=== PATIENT | female | born 1960 | race Caucasian/White ===

== ENCOUNTER → 2024-06-15 13:38 | Outpatient (REF) | payer OTHER, SELFPAY | LOC: RAD 13:38 | PROVIDERS: ATTENDING PHYSICIAN Surgery Vascular Surgery; FAMILY PHYSICIAN Family Medicine | DX: I73.9 Peripheral vascular disease, unspecified (principal) | CPT/HCPCS: 75635; Q9967 ==

== ENCOUNTER 2024-07-07 09:05 | Inpatient (IN) | payer OTHER, SELFPAY ==
[2024-06-30 10:35] VITALS: BMI 20.8
[2024-06-30 10:59] LABS: % Basophils 0.6 % (0-2); % Eosinophils 1.2 % (0-6); % Immature Granulocytes 0.3 % (0-0.5); % Lymphocytes 24.5 % (20.5-51.1); % Monocytes 6.9 % (1.7-9.3); % Neutrophils 66.5 % (42.2-75.2); Absolute Basophils 0.1 10^3/uL (0-0.2); Absolute Eosinophils 0.1 10^3/uL (0-0.7); Absolute Lymphocytes 2.5 10^3/uL (1.2-3.4); Absolute Monocytes 0.7 10^3/uL (0.1-0.6); Absolute Neutrophils 6.8 10^3/uL (1.4-6.5); Hematocrit 43.2 % (37.0-47.0); Hemoglobin 14.4 g/dL (12.0-16.0); Mean Corp Hgb Conc. 33.3 g/dL (33.0-37.0); Mean Corpuscular Hgb 32.5 pg (27.0-31.0); Mean Corpuscular Volume 97.5 fL (81.0-99.0); Mean Platelet Volume 8.7 fL (7.4-10.4); Nucleated Red Blood Cells % 0 %; Platelet Count 264 10^3/uL (130-400); Red Blood Cell Count 4.43 10^6/uL (4.20-5.40); Red Cell Dist. Width 13.2 % (11.5-14.5); White Blood Cell Count 10.3 10^3/uL (4.8-10.8)
[2024-06-30 11:07] LABS: INR 0.87; PT 12.4 Sec (11.4-14.6)
[2024-06-30 11:36] LABS: Blood Urea Nitrogen 11 mg/dl (7-17); Calcium 9.6 mg/dl (8.4-10.2); Carbon Dioxide 29 mmol/L (22-30); Chloride 101 mmol/L (98-107); Estimated Creatinine Clearance 80 ml/min; Glucose 125 mg/dl (70-99); Potassium 4.4 mmol/L (3.5-5.1); Sodium 136 mmol/L (135-145); eGFR > 60.00
[2024-07-07] VITALS (28 sets, daily range): BP systolic 100–155; BP diastolic 50–100
--- NOTE | 2024-07-07 09:43 | W.SUR.PREOP ---
Pre-Operative Surgical Note
-
I have examined this patient prior to the performance of the scheduled procedure.
The patient's condition is unchanged from the time of the current History and
Physical and the patient is able to undergo the scheduled procedure.
[2024-07-07] MEDS: PERIDEX 0.12% ORAL RINSE 15 ML PO (09:48)
[2024-07-07] MEDS: BACTROBAN NASAL 1 GRAM NASAL (09:48)
[2024-07-07] MEDS: NSS 500 IV (09:49)
[2024-07-07] MEDS: NSS 1000 IV (13:00)
[2024-07-07 13:20] LABS: Hematocrit 40.9 % (37.0-47.0); Mean Corp Hgb Conc. 34.2 g/dL (33.0-37.0); Mean Corpuscular Hgb 33.3 pg (27.0-31.0); Mean Corpuscular Volume 97.1 fL (81.0-99.0); Mean Platelet Volume 8.8 fL (7.4-10.4); Platelet Count 220 10^3/uL (130-400); Red Blood Cell Count 4.21 10^6/uL (4.20-5.40); Red Cell Dist. Width 13.2 % (11.5-14.5); White Blood Cell Count 10.5 10^3/uL (4.8-10.8)
[2024-07-07 13:34] LABS: Blood Urea Nitrogen 9 mg/dl (7-17); Calcium 8.4 mg/dl (8.4-10.2); Carbon Dioxide 25 mmol/L (22-30); Chloride 104 mmol/L (98-107); Estimated Creatinine Clearance 80 ml/min; Glucose 132 mg/dl (70-99); Potassium 4.9 mmol/L (3.5-5.1); Sodium 134 mmol/L (135-145); eGFR > 60.00
--- NOTE | 2024-07-07 13:42 | OR.RPT ---
Operative Report
Operative Report
PROCEDURE DATE: 07/07/2024
Preoperative diagnosis:
1. Subacute thrombosis of the left common femoral artery and proximal SFA status post left iliac angioplasty/stent.
2. Subacute left lower extremity ischemic symptoms. (Debilitating calf claudication, ischemic rest pain/numbness).
Postoperative diagnosis: Same
Procedure: Left femoral thromboendarterectomy with saphenous vein patch angioplasty.
Surgeon: Ez
Sql Programmer: BONNIE Gloria, required for all aspects of procedure including assistance with traction/countertraction, following of suture line, assistance with closure.
Complications: None
Anesthesia: General
Indications for procedure:
Patient presented with severe symptoms of claudication that occurred abruptly after left iliac angioplasty/stenting procedure she had elsewhere. She also had potential numbness and rest pain like symptoms at night with foot discomfort, sleeping
with her leg hanging off the bed. I reviewed her outside intervention report and images, and this revealed that she had undergone Angio-Seal closure of the left common femoral artery at the end of this intervention, and from the notes there was
some issue with the common femoral artery filling (filling defect was noted) at that time. In addition there is hematoma. Angioplasty with balloon inflation was performed to relieve that. However, based on my exam and her prior ultrasound
findings, as well as the CT scan that I ordered, this all confirmed common femoral artery occlusion with thrombus and plaque. Therefore I discussed left femoral thromboendarterectomy. Risk/benefit/alternatives of all fully discussed. Patient
understood all wished to proceed.
Description of procedure:
Patient was identified brought to the operating room placed on the table in supine position. After the adequate administration of anesthesia she was prepped and draped in the standard surgical fashion. A standard preoperative timeout was
undertaken and everybody was in agreement the plan.
A standard longitudinal incision was made in the left groin that was carried through skin subcutaneous tissue. With the electrocautery I continued to dissect down through the subcutaneous tissue. Any crossing lymphatic type structures were
ligated between silk ties and divided. Identified the common femoral artery as it emerged from underneath inguinal ligament. The tissues were somewhat inflamed likely secondary to recent catheter-based intervention through the groin as well as
prior Angio-Seal closure. There is also inflammatory tissue around the artery complicating the dissection of the artery. However I was able to carefully dissect the common femoral artery proximally as well as the distal external iliac artery
underneath inguinal ligament. I circumferentially dissected the distal external iliac artery where it was soft and pulsatile and passed a vessel loop around it. I continued my dissection down to the femoral bifurcation and identified the
superficial femoral artery. I dissected for 2 to 3 cm on its anterior surface before I got to a softer point. Passed a vessel loop around it after careful circumferential dissection here. Now I traced back to the profunda origin. I carefully
dissected the origin of the profundus circumferentially and passed a vessel loop around it. In addition now I identified another posterior common femoral branch more proximally and carefully circumferentially dissected that passed a vessel loop
around it, and I also identified a left lateral proximal common femoral artery branch that was controlled with the vessel.
Given the inflammatory nature of some of the tissues here, I was concerned about using a prosthetic patch or bovine pericardial patch. Therefore within this incision site, and the more superficial medial tissues identified the greater
saphenous vein. It seemed like a very reasonable vein. I dissected it for a suitable segment, and mobilized by ligating any branches between silk ties and clips and then dividing them. Once I mobilized the suitable segment, I felt that I had
enough to sew a vein patch angioplasty. At this point, I gave the patient 5000 units of intravenous heparin. Once this had circulated I clamped or double looped and tightened Vesseloops on the outflow vessels and branches. I then clamped the
distal external iliac artery. I now made an arteriotomy on the common femoral artery with an 11 blade. I extended onto the proximal common femoral artery with the Rose scissor and onto the SFA for a couple centimeters with a Rose scissor. As
expected I noted thrombotic/formed thrombus in the common femoral artery. It was a slightly atypical process. It did not look to be an embolic phenomenon but rather an in situ thrombus. There was some loose plaque as well. Therefore I was under
the suspicion that likely plaque had loosened from the attempted closure device or from the prior catheterization and this had resulted in in situ thrombosis. I now used a [place] and endarterectomized the loose plaque and thrombus. This proved to
be somewhat challenging but was able to do so. I cut the plaque flush in the proximal common femoral artery. There was still a thin rim of plaque but is nicely adherent. Distally the plaque feathered out in the common femoral artey distally along
with the thrombus. However there was a loose plaque in the proximal SFA/distal common femoral artery and therefore I used a [place] to endarterectomized this and then plaque flush in the SFA. It was only involving the medial wall. I was aware based
on prior imaging that there was plaque extending through the SFA and therefore I felt that this was a reasonable endpoint. I now removed any fine debris with fine forceps throughout the endarterectomy bed. I inspected the proximal distal
endpoints and was very satisfied. I inspected the origin of the profunda and it was widely patent.
I now placed a couple 6-0 Prolene tacking sutures at the SFA endpoint of plaque. I was very satisfied with the appearance of the endpoint with the tacking sutures in place. Now, I confirmed that I had a suitable length of vein dissected. I
now ligated the vein distally with a heavy silk tie and a clip. I transected the vein. Proximally I placed a silk suture ligature and transected the vein distal to the ligature. There was a small bleeding branch from the vein that had been
avulsed. This was oversewn with a couple 6-0 Prolene sutures. Now the vein that I had harvested looked good. I filleted it with a Rose scissor. Now I sewed a vein patch angioplasty using a running 5-0 Prolene suture. Prior to completing and
tying down my suture line I backbled each branch of the artery. I then irrigated and instilled heparinized saline. I then completed and tied down my suture line. I then released arterial clamps thereby reestablishing perfusion. There is
excellent pulsatile flow into the patched artery and into the SFA/profunda. Doppler confirmed excellent signals. A couple 6-0 Prolene [id number] type sutures were used to repair a couple bleeding points on the suture line. In addition a
single 6-0 Prolene [id number] with a pledget was placed on a small bleeding rent on the medial wall distally. At this point hemostasis was fully noted. We then irrigated and confirmed full hemostasis. We now closed in layers using 2-0 Vicryl
running layer followed by 3-0 Vicryl running deep dermal layer followed by 4 Monocryl subcuticular running stitch. Dermabond was applied. The patient tolerated the procedure well. She had a palpable left posterior tibial pulse upon completion.
She was taken to recovery room in good condition. All sponge, needle, instrument counts were correct at the end of the case.
--- NOTE | 2024-07-07 14:15 | PTCARENOTE ---
arrived in ICU 3372 from PACU via bed. signals confirmed, groin site clean dry intact soft. talkative. placed on monitor, questions answered. saez patent and draining. NS infusing as ordered.
[2024-07-07] MEDS: ROXICODONE 5 MG PO ×2 (14:36→20:17)
[2024-07-07] MEDS: NICODERM TRANSDERMAL 7 MG TRANSDERM (17:38)
--- NOTE | 2024-07-07 18:24 | PTCARENOTE ---
order for nicoderm patch obtained, taken to room with explanation of reduced dose. pt reported she had already put her own patch on, 14 mg. requested that she take none of her own meds while in hospital and rationale. verbalizes understanding.
her 14 mg patch removed and 7 mg applied. visitors at bedside. I/O collected.
--- NOTE | 2024-07-07 20:00 | PTCARENOTE ---
Received pt from previous shift. Systems reviewed, see flowsheets. NSR 70s on heart monitor, 95-97% on RA. L groin dressing CDI. Performing q1h LLE vascular checks for 24hrs. R forearm with NSS at 80mL/hr. Pt reporting 3 to 4 pain in L groin. Sauer
in place draining clear yellow urine. Pt requesting xanax for anxiety and stated that if she couldn't get it, she would 'just take a gummy'. Advised pt not to take anything not ordered by provider while in hospital. Will check with overnight
provider about xanax.
[2024-07-07] MEDS: HEPARIN 5000 UNITS SC (20:17)
[2024-07-07] MEDS: LIPITOR 40 MG PO (22:19)
[2024-07-07] MEDS: ZESTRIL 5 MG PO (22:19)
[2024-07-07] MEDS: FOLVITE 1 MG PO (22:19)
[2024-07-07] MEDS: ATIVAN 1 MG PO (22:19)
[2024-07-07] MEDS: PLAVIX 75 MG PO (22:19)
[2024-07-07] MEDS: ASPIR LOW (ENTERIC COATED) 81 MG PO (22:19)
[2024-07-07] MEDS: LEXAPRO 10 MG PO (22:19)
[2024-07-08] VITALS (17 sets, daily range): BP systolic 83–144; BP diastolic 50–92; BMI 20.4
--- NOTE | 2024-07-08 | PTCARENOTE ---
Systems reviewed, no changes in assessment at this time. Pt lying comfortably in bed with no new complaints. Q1h LLE vascular checks maintained.
[2024-07-08] MEDS: NSS 1000 IV (01:26)
--- NOTE | 2024-07-08 04:00 | PTCARENOTE ---
Systems reviewed, no changes in assessment at this time.
[2024-07-08 04:39] LABS: Hematocrit 38.3 % (37.0-47.0); Mean Corp Hgb Conc. 33.9 g/dL (33.0-37.0); Mean Corpuscular Hgb 32.8 pg (27.0-31.0); Mean Corpuscular Volume 96.7 fL (81.0-99.0); Mean Platelet Volume 8.9 fL (7.4-10.4); Platelet Count 211 10^3/uL (130-400); Red Blood Cell Count 3.96 10^6/uL (4.20-5.40); Red Cell Dist. Width 13.2 % (11.5-14.5); White Blood Cell Count 13.3 10^3/uL (4.8-10.8)
[2024-07-08 04:54] LABS: INR 0.92; PT 12.9 Sec (11.4-14.6)
[2024-07-08 04:56] LABS: APTT 27.2 Sec (23.4-35.0)
[2024-07-08 04:58] LABS: Blood Urea Nitrogen 6 mg/dl (7-17); Calcium 8.5 mg/dl (8.4-10.2); Carbon Dioxide 26 mmol/L (22-30); Chloride 104 mmol/L (98-107); Estimated Creatinine Clearance 80 ml/min; Glucose 113 mg/dl (70-99); Potassium 4.3 mmol/L (3.5-5.1); Sodium 136 mmol/L (135-145); eGFR > 60.00
[2024-07-08 05:58] LABS: Hepatitis C Antibody Negative (Negative)
--- NOTE | 2024-07-08 06:59 | CON.INTV ---
Consultation
Consultation Request
Date/Time Consultation Requested: 07/07/2024
Date/Time Consultation Performed: 07/08/2024
Requesting Provider: Percy Hui
Performing Provider: Fabiana Bray
Reason for Consultation: Post-operative management
Medical History
-
Chief Complaint: Claudication symptoms, s/p surgery for peripheral vascular disease
History of Present Illness:
Patient is a very pleasant 63-year-old female who has extensive history of peripheral vascular disease and was lately having symptoms of claudication. She was evaluated in the office of vascular surgery service and was scheduled for a left femoral
thromboendarterectomy. Patient had the procedure performed on 07/07/2024 and then subsequently was transferred to intensive care unit.
Past medical history, anxiety, hypertension, hyperlipidemia, claudication, prior history of smoking, currently not smoking. No known history of pulmonary disease
Family History
Family History: Reviewed & Not Pertinent
Allergies / Home Medications
Allergies
Allergy/AdvReac Type Severity Reaction Status Date / Time
tramadol AdvReac Nausea Verified 07/07/24 15:12
Home Medications
�Medication �Instructions �Recorded �Confirmed �Last Taken �Type
Cannibas Gummy 1 gummy PO PRN PRN anxiety 06/27/24 06/27/24 Unknown History
Vitamin D3 1 cap PO MO 06/27/24 07/07/24 07/01/24 18:00 History
aspirin 81 mg tablet,delayed 81 mg PO HS 06/27/24 07/07/24 07/06/24 18:00 History
release
atorvastatin 40 mg tablet 40 mg PO HS 06/27/24 07/07/24 07/06/24 18:00 History
clopidogrel 75 mg tablet (Plavix) 75 mg PO HS 06/27/24 07/07/24 07/06/24 18:00 History
escitalopram oxalate 20 mg tablet 10 mg PO HS 06/27/24 07/07/24 07/06/24 18:00 History
folic acid 1 mg tablet 1 mg PO HS 06/27/24 07/07/2425 18:00 History
lisinopril 5 mg tablet 5 mg PO HS 06/27/24 07/07/24 07/06/24 18:00 History
milk thistle 1 cap PO DAILY 06/27/24 07/07/24 07/06/24 18:00 History
propranolol 10 mg tablet 10 mg PO PRN PRN Anxiety 06/27/24 07/07/24 07/06/24 13:00 History
Review of Systems
-
Hematologic/Lymphatic: Other (All 14 systems reviewed and negative except as stated above in the history of present illness.)
Vitals / Labs / Diagnostic Testing
Vital Signs
Temp Pulse Resp BP Pulse Ox
97.8 F 60 23 92/56 93
07/08/24 03:30 07/08/24 06:30 07/08/24 06:30 07/08/24 06:00 07/08/24 06:30
Lab Data
07/08/24 04:17
07/08/24 04:17
Laboratory Results
07/08/24
04:17
PT 12.9
INR 0.92
APTT 27.2
Diagnostic Testing:
Physical Exam
-
HEENT: Normocephalic
Cardiovascular: S1/S2
Respiratory: Clear
GI: Soft and Non Distended
Neurology: Awake
Skin: Warm
General: Comfortable
Assessment
-
Very pleasant 63-year-old female with history of severe peripheral vascular disease as well as symptoms of claudication had left femoral thromboendarterectomy with saphenous vein patch angioplasty on 07/07/2024. Postsurgery patient was brought to
the ICU
Patient is s/p left femoral thromboendarterectomy with saphenous vein patch angioplasty by vascular surgery service, POD #1
Continue observation following procedure
Follow neurovascular checks per protocol
Patient on aspirin, Plavix, statins
Follow BP monitoring and parameters as set by primary team
Cardiac history noted, currently on lisinopril in addition to aspirin, Plavix and statins
Monitor on telemetry
Pain control per protocol, patient comfortably sitting in chair
No prior history of pulmonary disease, however patient does have prior history of smoking, currently not using any cigarettes. No reported known history of COPD or emphysema per patient.
Chest x-ray, 06/30/2024, without any acute cardiopulmonary disease
No prior PFTs for review
Encouraged IS
Diet advancement per protocol
CBC, BMP, coagulation panel unremarkable
Critical I/Os
No signs/symptoms suspicious for infectious etiology at this time
Will observe off antibiotics for now
Follow temperatures/CBC
Hb and platelets postoperatively stable
Anticipated transfer out of ICU later today
We will follow
#1. History of smoking and occasional cough. Patient denies any known history of asthma, COPD or emphysema however reports that she has been prescribed albuterol in the past which she takes occasionally. I suspect patient may have underlying
obstructive airway disease and recommend follow-up with pulmonary clinic as outpatient.
Critical Care time 30 mins -- The patient is admitted for acute critical illness for the treatment of vital organ failure and/or prevention of further life-threatening conditions. Total care includes time spent in review of history, physical exam,
medications, hemodynamic/ventilator parameters, laboratory data, imaging and discussion with house staff, pharmacy, respiratory therapy, pulley maintainer, and nursing.
--- NOTE | 2024-07-08 08:00 | PTCARENOTE ---
recd pt, meds given, pulse checks continuing, L fem site soft, dressing dry and intact. saez dcd. fluids capped. aware of plans for OOB and possible DC today. resting, ordered and awaiting breakfast. tolerating room air.
--- NOTE | 2024-07-08 08:05 | W.PN.VS ---
Addendum entered and electronically signed by Percy Hui MD 07/08/24 13:42:
Seen and examined earlier this a.m. with BONNIE Gloria. This is a late entry. Agree with findings as noted below. Left groin dressing clean dry and intact. Groin is flat. No hematoma. Left foot warm with palpable DP and PT pulse. Plan/as discussed
and noted below.
Original Note:
Today's Communication / Plan
-
Patient seen and examined at bedside with Dr. Percy Hui, below plan reviewed with attending
Assessment/Plan
-
Plan: 63-year-old female POD #1 Left femoral thromboendarterectomy with saphenous vein patch angioplasty
Plan:
Discontinue IV fluids
Discontinue Sauer catheter
Continue DAPT of Plavix 75 mg p.o. daily and aspirin 81 mg p.o. daily
OOB to chair with progression ambulation as tolerated
Possible discharge later this afternoon pending progression
Subjective Data
-
Date of Service: July 08, 2024
Patient seen and examined at bedside, offers no complaints. Reports adequate postoperative pain management. Denies nausea, vomiting, fever, and chills. Reports tolerating p.o. diet.
Objective Data
-
Vital Signs
Temp Pulse Resp BP Pulse Ox
98.2 F 60 23 92/56 93
07/08/24 07:55 07/08/24 06:30 07/08/24 06:30 07/08/24 06:00 07/08/24 06:30
Intake and Output
07/07/24 07/08/24 07/09/24
06:59 06:59 06:59
Intake Total 2478 / 2478
Output Total 1954
Balance 524 / 524
Intake:
Oral fluids 960 / 960
IV fluids (Total) 1519 / 1519
NSS 1519 / 1519
Output:
Urine, Sauer 1954
Lab Results
07/08/24 04:17
07/08/24 04:17
Calcium 8.5 mg/dl (8.4-10.2) 07/08/24 04:17
Physical Exam
-
No apparent distress, resting bed comfortably
No tachycardia
No dyspnea on room air
ABD flat, nontender, nondistended
Left groin dressing CDI, no evidence of hematoma or edema, all surrounding compartments soft
Left foot DP and PT pulse palpable, left foot warm
Sauer draining clear yellow urine
[2024-07-08] MEDS: HEPARIN 5000 UNITS SC (08:30)
[2024-07-08] MEDS: NICODERM TRANSDERMAL 7 MG TRANSDERM (08:30)
[2024-07-08] MEDS: ROXICODONE 5 MG PO ×2 (08:33→13:09)
--- NOTE | 2024-07-08 11:45 | CM ---
CM following re: discharge planning.
Discussed in rounds, reviewed pt's chart, met with pt.
Pt is a 63 year old female, admitted with primary dx of POD #1 Left femoral thromboendarterectomy. per vascular surgery pt most likely will be discharged home this afternoon. Pt is aware, expressed her agreement and she stated her son will transport
home.
Pt reports she lives with son 2SH, 2 steps to enter. pt described herself as independent in all areas [employer], works, drives.
PCP: Chacha Lyn
Pharmacy: [facility].
d/C plan: home no needs. Son to transport.
--- NOTE | 2024-07-08 14:20 | W.[place]-PDMP ---
[place]-PD[place]
-
Checked the [place]- Prescription Drug Monitoring Program website, no red flags identified; safe to proceed with prescription.
--- NOTE | 2024-07-08 14:20 | W.DS.TRANS ---
DC Summary - [facility]
-
Discharge Instructions:
Discharge Diagnosis/Procedures Left femoral thromboendarterectomy with
saphenous vein patch angioplasty
Diet As tolerated
Activity No strenuous activity
Driving Restrictions Not until seen by your Dr
Bathing Restrictions OK to Shower
Instructions:
Stand-Alone Forms:
Changes to Home Medications: Yes
Discharge Medications:
DC Medications w/original date entered in [email or web address]
Cannibas Gummy 1 gummy PO PRN PRN anxiety 06/27/24
Vitamin D3 1 cap PO MO 06/27/24
aspirin 81 mg tablet,delayed release 81 mg PO HS 06/27/24
atorvastatin 40 mg tablet 40 mg PO HS 06/27/24
clopidogrel 75 mg tablet (Plavix) 75 mg PO HS 06/27/24
escitalopram oxalate 20 mg tablet 10 mg PO HS 06/27/24
folic acid 1 mg tablet 1 mg PO HS 06/27/24
lisinopril 5 mg tablet 5 mg PO HS 06/27/24
milk thistle 1 cap PO DAILY 06/27/24
propranolol 10 mg tablet 10 mg PO PRN PRN Anxiety 06/27/24
oxycodone 5 mg tablet 5 mg PO Q4HPRN PRN moderate pain #8 tabs 07/08/24
Home Medication Changes
Added:
oxycodone 5 mg tablet 5 mg PO Q4HPRN PRN moderate pain #8 tabs 07/08/24
Pending Results: No
--- NOTE | 2024-07-08 14:30 | PTCARENOTE ---
seen by vascular, for DC today, pt summoned ride and organizing room. questions answered.
--- NOTE | 2024-07-08 15:48 | PTCARENOTE ---
discharged 1510 to home via , questions answered, in good spirits. IV sites removed. Vascular had removed groin dressing, exofin glue intact L fem.
== END 2024-07-08 15:50 | disposition home or self-care (01) | DRG 254 ==
LOC: ICU 09:05
PROVIDERS: Nurse Practitioner; ADMITTING PHYSICIAN Surgery Vascular Surgery; CONSULT PHYSICIAN Internal Medicine; PRIMARYCARE PHYSICIAN Family Medicine
PROC: 04CL0ZZ Extirpation of Matter from Left Femoral Artery, Open Approach (ICD-10-PCS; 2024-07-07)
PROC: 04UL07Z Supplement Left Femoral Artery with Autologous Tissue Substitute, Open Approach (ICD-10-PCS; 2024-07-07)
DX: I74.3 Embolism and thrombosis of arteries of the lower extremities (principal); I70.212 Atherosclerosis of native arteries of extremities with intermittent claudication, left leg; I10 Essential (primary) hypertension; E78.5 Hyperlipidemia, unspecified; E78.2 Mixed hyperlipidemia; Z87.891 Personal history of nicotine dependence; Z95.820 Peripheral vascular angioplasty status with implants and grafts; Z79.82 Long term (current) use of aspirin; Z79.02 Long term (current) use of antithrombotics/antiplatelets
CPT/HCPCS: 88304; 35371; 36415; 71046; 80048; 85025; 85027; 85610; 85730; 86803; 86850; 86900; 86901; 93005

== ENCOUNTER → 2024-08-09 15:07 | Outpatient (REF) | payer OTHER, SELFPAY | LOC: RAD 15:07 | PROVIDERS: ATTENDING PHYSICIAN Physician Assistant; FAMILY PHYSICIAN Family Medicine | DX: I73.9 Peripheral vascular disease, unspecified (principal); I74.3 Embolism and thrombosis of arteries of the lower extremities | CPT/HCPCS: 93922; 93978 ==

== ENCOUNTER → 2024-11-02 13:10 | Outpatient (REF) | payer OTHER, SELFPAY | LOC: RAD 13:10 | PROVIDERS: ATTENDING PHYSICIAN Surgery Vascular Surgery; FAMILY PHYSICIAN Family Medicine | DX: M79.89 Other specified soft tissue disorders (principal) | CPT/HCPCS: 93971 ==

== ENCOUNTER → 2025-01-27 13:24 | Outpatient (REF) | payer OTHER, SELFPAY | LOC: RAD 13:24 | PROVIDERS: ATTENDING PHYSICIAN Surgery Vascular Surgery; FAMILY PHYSICIAN Family Medicine | DX: I73.9 Peripheral vascular disease, unspecified (principal); I74.3 Embolism and thrombosis of arteries of the lower extremities | CPT/HCPCS: 93922; 93925; 93978 ==

== ENCOUNTER → 2025-03-27 10:58 | Outpatient (REF) | payer SELFPAY | LOC: RAD 10:58 | PROVIDERS: ATTENDING PHYSICIAN Internal Medicine Cardiovascular Disease; FAMILY PHYSICIAN Family Medicine | DX: I77.89 Other specified disorders of arteries and arterioles (principal); I73.9 Peripheral vascular disease, unspecified; R09.89 Other specified symptoms and signs involving the circulatory and respiratory systems; F17.210 Nicotine dependence, cigarettes, uncomplicated | CPT/HCPCS: 93880 ==